=== PATIENT | female | born 1955 | race Hispanic/Latino ===

== ENCOUNTER → 2019-11-23 | Day surgery (SDC) | payer MEDICARE ==
--- NOTE | 2019-11-19 11:50 | Diagnostic Imaging Report ---
Exam: Chest radiograph Clinical History: Preoperative clearance Findings: The cardiomediastinal silhouette and lungs are normal. The regional skeleton and soft tissue are unremarkable. There is no evidence of pleural effusion or pneumothorax. Impression: No radiographic evidence of acute cardiopulmonary disease. Signed by: Dr. Vasyl Calles MD on 11/19/2019 11:48 AM
[~2019-11-23] MED LIST: ASPIRIN81 MG PO; BUPIVACAINE HCL 0.5% INJ 30 ML VIAL INJ ONE; CEFAZOLIN SOD 1 GM/NS 50ML 50 ML IV ONE; DEXAMETHASONE SOD PHOS INJ 4 MG/ML VIAL ONE; FENTANYL CITRATE/PF 100MCG/2 ML INJ ONE; KETOROLAC TROMETHAMINE 30 MG/ML VIAL ONE; LEVOTHYROXINE150 MCG PO; LIDOCAINE HCL 1% LOCAL INJ 20 ML VIAL ONE; LIDOCAINE HCL 2% LOCAL INJ 5 ML SDV VIAL INJ ONE; LISINOPRIL10 MG PO; LOVASTATIN20 MG PO; MIDAZOLAM HCL 2 MG/2 ML VIAL ONE; ONDANSETRON HCL INJ 2MG/ML 2ML 2 MG/ML VIAL ONE; PROPOFOL IV EMULSION 10 MG/ML 20 ML VIAL ONE; SEVOFLURANE INHAL SOLN 250 ML PEN BTL ONE; SOLIQUA 100 UNIT3 ML SQ; VITAMIN D34000 UNIT PO; XIGDUO XR 2.51 EACH PO; [UNRECOGNIZED DRUG - REMARK]
--- OUTSIDE RECORDS SUMMARY | 2019-11-23 05:31 | XMS REPORT ---
Author Author [facility] Address Unknown Phone Unavailable Care Team Providers Care [facility] Name Role Phone ERNESTO MONTGOMERY Unavailable Unavailable Problems This patient has no known problems. Allergies, Adverse Reactions, Alerts This patient has no known allergies or adverse reactions. Medications This patient has no known medications. Results Test Description Test Time Test Comments Text Results Atomic Results Result Comments CHEST 2 VIEWS 2019-11-19 11:47:00 [place] [id number] Patient Name: LUCÍA PETERSEN MR #: [id number] : 1955 Age/Sex: 64/F Req #: [id number] [facility] Physician: Ordered by: ERNESTO MONTGOMERY MD Report #: [id number] Location: OR Room/Bed: Procedure: [id number] DX/CHEST 2 VIEWS Exam Date: 11/19/19 Exam Time: 1109 REPORT STATUS: Signed Exam: Chest radiograph Clinical History: Preoperative bk arance Findings: The cardiomediastinal silhouette and lungs are normal. The regional skeleton and soft tissue are unremarkable. There is no evidence of pleural effusion or pneumothorax. Impression: No radiographic evidence of acute cardiopulmonary disease. Signed by: Dr. Vasyl Calles MD on 11/19/2019 11:48 AM Dictated By: CAROLINE CALLES MD [id number] Transcribed By: KAUSHIK on 11/19/19 1148 COPY TO: ERNESTO MONTGOMERY MD
[2019-11-23 08:30] VITALS: BP 116/60
--- NOTE | 2019-11-23 12:50 | Operative Report ---
DATE OF PROCEDURE: 11/23/2019 SURGEON: Morales Clark MD TRAUMA DIRECTOR: Jatin Chirinos, certified PA. PREOPERATIVE DIAGNOSIS: Right 3rd trigger finger. POSTOPERATIVE DIAGNOSIS: Right 3rd trigger finger. PROCEDURE: Release of right 3rd trigger finger. 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 She has failed conservative management and would like to proceed with definitive intervention. The risks and benefits of a surgical release have been explained. She has been through this by another surgeon in her left hand. She is familiar with the procedure. All of her questions have been answered. She states she understands and wishes to proceed. PROCEDURE IN DETAIL: The patient was brought to the operating room and placed under general anesthetic. Her right upper extremity was prepped and draped in a sterile manner. A preoperative time-out was performed. The extremity was exsanguinated and a proximal tourniquet was briefly inflated to 250 mmHg. An incision was made in line with the right 3rd finger around the distal palmar crease. Blunt dissection was carried down to expose the A1 dorene. This was released with a combination of a 15 blade surgical knife and some tenotomy scissors. The tendons were retracted from the wound and noted to have full excursion without any further stenosing tenosynovitis. There was some mild fraying of the tendons. The wound was irrigated and closed with two interrupted nylon stitches. A 4 mL of 1% lidocaine without epinephrine was injected around the incision. A sterile bandage was applied. The tourniquet was deflated and the patient was extubated. She was transported to the recovery room in stable condition. There was no blood loss and all needle and sponge counts were correct. Morales Clark MD DR/SHAN /[id number]
== END | disposition home or self-care (01) ==
LOC: OR 05:30
PROVIDERS: ATTEND Specialist
DX: M65.331 Trigger finger, right middle finger (principal); J00 Acute nasopharyngitis [common cold]; D64.9 Anemia, unspecified; E11.9 Type 2 diabetes mellitus without complications; I10 Essential (primary) hypertension; E03.9 Hypothyroidism, unspecified; F17.210 Nicotine dependence, cigarettes, uncomplicated; Z91.048 Other nonmedicinal substance allergy status; Z01.818 Encounter for other preprocedural examination; Z79.82 Long term (current) use of aspirin; Z79.4 Long term (current) use of insulin; Z68.33 Body mass index [BMI] 33.0-33.9, adult
CPT/HCPCS: 26055; 36415; 71046; 82948; J0690; J1100; J1885; J2001 ×2; J2250; J2405; J2704; J3010